=== PATIENT | male | born 1950 | race Caucasian/White ===

== ENCOUNTER 2017-06-19 16:01 | Inpatient (IN) | payer MEDICARE ==
[2017-06-19 16:01] VITALS: BMI 30.1
--- NOTE | 2017-06-19 17:07 | ED PDOC ---
HPI: SOB/CHF/COPD Time Seen by Provider: 06/19/17 16:19 Chief Complaint (Nursing): Chest Pain Chief Complaint (Provider): Shortness of breath History Per: Patient History/Exam Limitations: no limitations Onset/Duration Of Symptoms: Hrs (x1) Current Symptoms Are (Timing): Still Present Current Respiratory Medications: Albuterol Associated Symptoms: denies: Fever, Chills, Chest Pain, Ankle/Leg Swelling, Dizziness Additional Complaint(s): Melissa Montoya is a 66 year old male, with a past medical history of HTN, diabetes and asthma, who presents to the emergency department complaining of shortness of breath associated with cough onset 1 hour ago. Patient reports he has a hard time taking deep breaths, and has been waking up every morning with some cough after which he takes albuterol. Patient states he did wake up with dizziness but has been resolved, and last time he took albuterol was this morning. Patient denies any recent travel, fever, chills, leg swelling and chest pain. PMD: Kashmir Clarke Past Medical History Reviewed: Historical Data, Nursing Documentation, Vital Signs Vital Signs: Last Vital Signs Temp 98.2 F 06/19/17 16:08 Pulse 72 06/19/17 18:31 Resp 16 06/19/17 16:24 BP 167/80 H 06/19/17 16:24 Pulse Ox 99 06/19/17 18:31 - Medical History PMH: Arthritis (knees), Asthma, Diabetes, HTN Denies: Chronic Kidney Disease - Family History Family History: States: Unknown Family Hx - Home Medications Home Medications: Ambulatory Orders Medication Instructions Recorded Atorvastatin Calcium 40 mg PO DAILY 01/17/17 Enalapril Maleate [Vasotec] 20 mg PO DAILY 01/17/17 Insulin Glargine, Recombina 30 unit SQ HS 01/17/17 [Lantus] MetFORMIN [glucOPHAGE] 1,000 mg PO DAILY 01/17/17 Omeprazole 40 mg PO DAILY 01/17/17 Brimonidine Tartrate/Timolol 1 drop OU BID 06/19/17 [Combigan 0.2%-0.5% Eye Drops] acetaZOLAMIDE [Diamox 250 mg Tab] 250 mg PO HS 06/19/17 - Allergies Allergies/Adverse Reactions: Allergies Allergy/AdvReac Type Severity Reaction Status Date / Time shrimp Allergy RASH Verified 11/28/15 00:34 Curb-65 Severity Score - CURB-65 Severity Score Confusion: No Bun >19mg/dl (>7mmol/L): No Respiratory Rate greater than/equal to 30: No Systolic BP <90 or Diastolic BP less than/equal 60mmHg: No Age >64: No Curb-65 Score: 0 Percentage 30-day mortality: 0.6% Review of Systems ROS Statement: Except As Marked, All Systems Reviewed And Found Negative Constitutional: Negative for: Fever, Chills Cardiovascular: Negative for: Chest Pain Respiratory: Positive for: Cough, Shortness of Breath Neurological: Negative for: Dizziness Physical Exam - Reviewed Nursing Documentation Reviewed: Yes Vital Signs Reviewed: Yes - Physical Exam Appears: Positive for: Non-toxic (comfortable) Head Exam: Positive for: ATRAUMATIC, NORMAL INSPECTION, NORMOCEPHALIC Skin: Positive for: Normal Color, Warm, Dry Eye Exam: Positive for: EOMI, Normal appearance, PERRL ENT: Positive for: Normal ENT Inspection Neck: Positive for: Normal, Painless ROM, Supple Cardiovascular/Chest: Positive for: Regular Rate, Rhythm. Negative for: Murmur Respiratory: Positive for: Normal Breath Sounds. Negative for: Respiratory Distress Gastrointestinal/Abdominal: Positive for: Normal Exam, Bowel Sounds, Soft. Negative for: Tenderness Extremity: Positive for: Normal ROM. Negative for: Pedal Edema, Deformity, Swelling Neurologic/Psych: Positive for: Alert, Oriented (x3). Negative for: Motor/ Sensory Deficits - Laboratory Results Result Diagrams: 06/19/17 16:45 06/19/17 17:08 - ECG ECG Rhythm: Positive for: Normal QRS, Normal ST Segment, Sinus Rhythm (NORMAL) Rate: 72 O2 Sat by Pulse Oximetry: 99 (RA) Pulse Ox Interpretation: Normal - Radiology X-Ray: Viewed By Me, Read By Radiologist X-Ray Interpretation: No Acute Disease Medical Decision Making Medical Decision Making: Initial Impression: Dyspnea and hyperglycemia. differential includes: ACS, PE, CHF, rule out asthma exacerbation. Initial Plan: --EKG --B-type Natriuretic peptide --Basic Metabolic Panel --Troponin I --CBC w/ differential --D Dimer --Chest two views (PA/LAT) [RAD] --reevaluation Admitted Patient: Re-evaluation. Discussed results and plan to admit with patient who expresses understanding. All questions answered and there is agreement with the plan. Scribe Attestation: Documented by Martín Ruffin, acting as a scribe for Chika Martínez MD Provider Scribe Attestation: All medical record entries made by the Scribe were at my direction and personally dictated by me. I have reviewed the chart and agree that the record accurately reflects my personal performance of the history, physical exam, medical decision making, and the department course for this patient. I have also personally directed, reviewed, and agree with the discharge instructions and disposition. Disposition - Clinical Impression Clinical Impression: Chest pain, Dyspnea, Hyperglycemia - Patient ED Disposition Is Patient to be Admitted: Yes Discussed With : Shereen Quiñones Doctor Will See Patient In The: ED Counseled Patient/Family Regarding: Studies Performed, Diagnosis - Disposition Disposition Time: 18:00 Condition: GOOD - Pt Status Changed To: Hospital Disposition Of: Observation - POA Present On Arrival: Poor Glycemic Control ARIELLE Risk Score for UA/NSTEMI - ARIELLE Risk Score Age > 64: YES 3 or more CAD Risk Factors: YES Known CAD (Stenosis greater than 50%): NO Aspirin use in past 7 days: NO Severe Angina: NO EKG ST changes greater than 0.5mm: NO Positive Cardiac Marker: NO ARIELLE Score: 2 % risk at 14 days of: all cause mortality, new or recurrent OH, or severe recurrent ischemia requiring urgen revascularization: 8%
[2017-06-19 17:24] LABS: BLOOD UREA NITROGEN 14 mg/dl (9-20); CALCIUM 9.1 mg/dL (8.4-10.2); CARBON DIOXIDE 21 mmol/L (22-30); CHLORIDE 102 mmol/L (98-107); GFR AFRICAN-AMERICAN > 60; POTASSIUM 4.5 MMOL/L (3.6-5.0); SODIUM 133 mmol/l (132-148)
[2017-06-19 17:29] LABS: GLUCOSE,RANDOM 408 mg/dL (75-110)
[2017-06-19] MEDS ORDERED: Insulin Regular 100 units/ml IV STA (17:33)
--- NOTE | 2017-06-19 17:46 | RAD ---
HISTORY: COMPARISON: 11/28/2015. TECHNIQUE: Chest PA and lateral FINDINGS: LINES AND TUBES: None. LUNG AND PLEURA: The lungs are well inflated and clear. HEART AND MEDIASTINUM: The heart is not enlarged. The hilar and mediastinal contours are within normal limits. SKELETAL STRUCTURES: The bony structures are within normal limits for the patient's age. VISUALIZED UPPER ABDOMEN: Normal. OTHER FINDINGS: None. IMPRESSION: No active pulmonary disease.
[2017-06-19 17:48] LABS: BASO % 0.5 % (0.0-2.0); EOS % 15.9 % (0.0-4.0); HEMATOCRIT 38.5 % (35.0-51.0); LYMPH # 1.9 K/uL (1.0-4.3); LYMPH % 30.4 % (20.0-40.0); MEAN CELL VOLUME 86.6 fl (80.0-94.0); MEAN CORPUSCULAR HEMOGLOBIN 29.5 pg (27.0-31.0); MEAN PLATELET VOLUME 8.5 fl (7.2-11.7); MONO # 0.4 K/uL (0.0-0.8); MONO % 6.2 % (0.0-10.0); NRBC % 0.2 % (0.0-0.0); WHITE BLOOD COUNT 6.4 K/uL (4.8-10.8)
[2017-06-19] MEDS ORDERED: Sodium Chloride 0.9% 1,000 ML IV STA (17:56)
[2017-06-19] MEDS ORDERED: Insulin Regular 100 units/ml ONE (17:59)
[2017-06-19] MEDS ORDERED: Albuterol-Ipratrop 3 mg / 0.5 (3 ml) UD INH STA (18:08)
[2017-06-19] MEDS ORDERED: Albuterol 0.083% Inhal Sol (2.5 mg/3 mL) UD INH PRN (18:48)
[2017-06-19] MEDS ORDERED: Glucagon Recombinant 1 mg Inj IM PRN (18:52)
[2017-06-19] MEDS ORDERED: Dextrose 50% SYRINGE Inj (50 ml) IV PRN (18:52)
--- NOTE | 2017-06-19 19:16 | CP.PCM.HP ---
<Shereen Quiñones - Last Filed: 06/19/17 19:14> History of Present Illness - History of Present Illness History of Present Illness: 66 y/o male, with a PMHX of HTN, HLD, diabetes and asthma, presented to the ED complaining of shortness of breath associated with cough onset 1 hour prior to arrival. Patient reports he has a hard time taking deep breaths, and has been waking up every morning with some cough after which he takes albuterol which resolves the symptoms. Patient states he did wake up with dizziness but has been resolved, and last time he took albuterol was this morning. Pt seen and examined at ED, pt is symptoms free, states he feels well. Denies any recent travel, fever, chills, leg swelling and chest pain. PMD: Kashmir Clarke Present on Admission - Present on Admission Any Indicators Present on Admission: Yes History of Uncontrolled Diabetes: Yes Review of Systems - Review of Systems All systems: reviewed and no additional remarkable complaints except (per HPI) Past Patient History - Past Medical History & Family History Past Medical History?: Yes - Past Social History Smoking Status: Never Smoked - CARDIAC Hx Hypertension: Yes - PULMONARY Hx Asthma: Yes - NEUROLOGICAL Hx Neurological Disorder: No - HEENT Hx HEENT Problems: Yes Hx Cataracts: Yes Other/Comment: glasses - RENAL Hx Chronic Kidney Disease: No - ENDOCRINE/METABOLIC Hx Endocrine Disorders: Yes Hx Diabetes Mellitus Type 2: Yes - HEMATOLOGICAL/ONCOLOGICAL Hx Blood Disorders: No - INTEGUMENTARY Hx Dermatological Problems: No - MUSCULOSKELETAL/RHEUMATOLOGICAL Hx Arthritis: Yes (knees) - GASTROINTESTINAL Hx Gastrointestinal Disorders: Yes Other/Comment: chronic constipation - GENITOURINARY/GYNECOLOGICAL Hx Genitourinary Disorders: No - PSYCHIATRIC Hx Substance Use: No - SURGICAL HISTORY Other/Comment: RT. KNEE SURGERY - ANESTHESIA Hx Anesthesia: Yes Hx Anesthesia Reactions: No Hx Malignant Hyperthermia: No Meds Allergies/Adverse Reactions: Allergies Allergy/AdvReac Type Severity Reaction Status Date / Time shrimp Allergy RASH Verified 11/28/15 00:34 Physical Exam - Constitutional Appears: Non-toxic, No Acute Distress - Head Exam Head Exam: NORMOCEPHALIC - Eye Exam Eye Exam: Normal appearance, PERRL Pupil Exam: NORMAL ACCOMODATION - ENT Exam ENT Exam: Mucous Membranes Moist - Respiratory Exam Respiratory Exam: Clear to Auscultation Bilateral, NORMAL BREATHING PATTERN. absent: Rales, Rhonchi, Wheezes - Cardiovascular Exam Cardiovascular Exam: REGULAR RHYTHM, +S1, +S2 - GI/Abdominal Exam GI & Abdominal Exam: Normal Bowel Sounds, Soft. absent: Tenderness - Extremities Exam Extremities exam: Negative for: calf tenderness, pedal edema - Neurological Exam Neurological exam: Alert, CN II-XII Intact, Oriented x3 Results - Vital Signs Recent Vital Signs: Last Vital Signs Temp 98.2 F 06/19/17 16:08 Pulse 71 06/19/17 19:00 Resp 16 06/19/17 16:24 BP 167/80 H 06/19/17 16:24 Pulse Ox 99 06/19/17 18:33 - Labs Result Diagrams: 06/19/17 16:45 06/19/17 17:08 Labs: Laboratory Results - last 24 hr 06/19/17 06/19/17 06/19/17 16:45 16:45 17:08 WBC 6.4 RBC 4.45 Hgb 13.1 Hct 38.5 MCV 86.6 MCH 29.5 MCHC 34.0 RDW 13.0 Plt Count 219 MPV 8.5 Neut % (Auto) 47.0 L Lymph % (Auto) 30.4 [place] % (Auto) 6.2 Eos % (Auto) 15.9 H Baso % (Auto) 0.5 Neut # 3.0 Lymph # 1.9 [place] # 0.4 Eos # 1.0 H Baso # 0.0 D-Dimer, Quantitative 133 Sodium 133 Potassium 4.5 Chloride 102 Carbon Dioxide 21 L Anion Gap 15 BUN 14 Creatinine 0.8 Est GFR ( Amer) > 60 Est GFR (Non-Af Amer) > 60 Random Glucose 408 H* D Calcium 9.1 Troponin I < 0.0120 NT-Pro-B Natriuret Pep 96.3 Assessment & Plan - Assessment and Plan (Free Text) Assessment: 66 y/o male with history of HTN, Insulin dependant type II diabetes, HLD and Asthma being admitted for dyspnea responsive to albuterol therapy Plan: Dyspnea Chest xray negative, D-Dimer rule out PE, BNP low (less likely cardiac origin) therefore underlying cause more likely due Moderate intermittent asthma -Albuterol as ordered -resume home medications -Will adjust asthma medication as classification and current medication is not sufficient 2. Insulin Dependent Type II diabetes (Uncontrolled) -Achs -resume home meds -moderate coverage scale -hypoglycemic protocol 3. HTN resume home medication 4. Diet- Diabetic Heart Healthy 5. DVT prohylaxis- Lovenox 40mg daily <Kashmir Clarke - Last Filed: 06/20/17 07:49> Results - Vital Signs Recent Vital Signs: Last Vital Signs Temp 97.6 F 06/20/17 04:45 Pulse 56 L 06/20/17 04:45 Resp 18 06/20/17 04:45 BP 124/70 06/20/17 04:45 Pulse Ox 96 06/20/17 04:45 - Labs Result Diagrams: 06/19/17 16:45 06/19/17 17:08 Labs: Laboratory Results - last 24 hr 06/19/17 06/19/17 06/19/17 16:45 16:45 17:08 WBC 6.4 RBC 4.45 Hgb 13.1 Hct 38.5 MCV 86.6 MCH 29.5 MCHC 34.0 RDW 13.0 Plt Count 219 MPV 8.5 Neut % (Auto) 47.0 L Lymph % (Auto) 30.4 [place] % (Auto) 6.2 Eos % (Auto) 15.9 H Baso % (Auto) 0.5 Neut # 3.0 Lymph # 1.9 [place] # 0.4 Eos # 1.0 H Baso # 0.0 D-Dimer, Quantitative 133 Sodium 133 Potassium 4.5 Chloride 102 Carbon Dioxide 21 L Anion Gap 15 BUN 14 Creatinine 0.8 Est GFR ( Amer) > 60 Est GFR (Non-Af Amer) > 60 POC Glucose (mg/dL) Random Glucose 408 H* D Calcium 9.1 Troponin I < 0.0120 NT-Pro-B Natriuret Pep 96.3 06/19/17 06/19/17 06/20/17 19:29 23:29 01:00 WBC RBC Hgb Hct MCV MCH MCHC RDW Plt Count MPV Neut % (Auto) Lymph % (Auto) [place] % (Auto) Eos % (Auto) Baso % (Auto) Neut # Lymph # [place] # Eos # Baso # D-Dimer, Quantitative Sodium Potassium Chloride Carbon Dioxide Anion Gap BUN Creatinine Est GFR ( Amer) Est GFR (Non-Af Amer) POC Glucose (mg/dL) 284 H 353 H Random Glucose Calcium Troponin I < 0.0120 NT-Pro-B Natriuret Pep 06/20/17 05:13 WBC RBC Hgb Hct MCV MCH MCHC RDW Plt Count MPV Neut % (Auto) Lymph % (Auto) [place] % (Auto) Eos % (Auto) Baso % (Auto) Neut # Lymph # [place] # Eos # Baso # D-Dimer, Quantitative Sodium Potassium Chloride Carbon Dioxide Anion Gap BUN Creatinine Est GFR ( Amer) Est GFR (Non-Af Amer) POC Glucose (mg/dL) 197 H Random Glucose Calcium Troponin I NT-Pro-B Natriuret Pep Attending/Attestation - Attestation I have personally seen and examined this patient.: Yes I have fully participated in the care of the patient.: Yes I have reviewed all pertinent clinical information: Yes
[2017-06-19] MEDS ORDERED: Patient's Own Med (Insulin Glargine, Recombina [Lantus] 30 UNIT) SQ SCH (22:00)
[2017-06-19] MEDS: Insulin Regular 100 units/ml SC SCH (23:31)
[2017-06-19] MEDS: Insulin Detemir 100 Units/ml Inj SC SCH (23:45)
[2017-06-20] MEDS ORDERED: Influenza Vaccine 18yr & older 0.5 ML/45 MCG SYR IM ONE (06:00)
[2017-06-20] MEDS ORDERED: Pneumococcal 23-Valent Vaccine IM ONE (06:00)
[2017-06-20] MEDS: Insulin Regular 100 units/ml SC SCH ×4 (07:52→22:03)
--- NOTE | 2017-06-20 08:39 | CARD ---
APPROVED REPORT EKG Measurement Heart [id number] <Conclusion> Normal sinus rhythm Normal ECG
[2017-06-20] MEDS ORDERED: Albuterol-Ipratrop 3 mg / 0.5 (3 ml) UD INH STA (08:53)
[2017-06-20] MEDS ORDERED: Patient's Own Med (Brimonidine Tartrate/Timolol [Combigan 0.2%-0.5% Eye Drops] 1 DROP) OU SCH (09:00)
[2017-06-20] MEDS: Pantoprazole 40 mg EC Tab PO SCH (09:53)
[2017-06-20] MEDS: Mometasone 110 mcg/puff-30 puff Inh INH SCH ×2 (09:54→22:02)
[2017-06-20] MEDS: Brimonidine 0.2% 50 DROP/5 ML BOTTLE OU SCH ×3 (09:54→16:52)
[2017-06-20] MEDS: Enoxaparin 40 mg Syringe SC SCH (09:55)
--- NOTE | 2017-06-20 11:57 | CP.PCM.CON ---
History of Present Illness - History of Present Illness History of Present Illness: THE PATIENT IS A 66 YEAR OLD MALE WHO HAS A HISTORY OF ASTHMA, HYPERTENSION AND HYPERLIPIDEMIA WHO COMPLAINED ABOUT SOB AND COUGHING YESTERDAY AND CAME TO ER AND WAS ADMITTED. HE RECEIVED NEBULIZER TREATMENTS AND NOW FEELS BETTER THIS MORNING AND IS BREATHING BETTER. CARDIOLOGY WAS CALLED TO SEE THE PATIENT. HE DENIES CHEST PAIN OR A HISTORY OF CARDIAC DISEASE. Past Patient History - Past Medical History & Family History Past Medical History?: Yes - Past Social History Smoking Status: Never Smoked - CARDIAC Hx Cardiac Disorders: Yes (HTN) Hx Hypercholesterolemia: Yes Hx Hypertension: Yes - PULMONARY Hx Respiratory Disorders: Yes (asthma) Hx Asthma: Yes - NEUROLOGICAL Hx Neurological Disorder: No - HEENT Hx HEENT Problems: Yes Hx Cataracts: Yes - RENAL Hx Chronic Kidney Disease: No - ENDOCRINE/METABOLIC Hx Endocrine Disorders: Yes (diabetes) Hx Diabetes Mellitus Type 2: Yes - HEMATOLOGICAL/ONCOLOGICAL Hx Blood Disorders: No Hx AIDS: No Hx Human Immunodeficiency Virus (HIV): No - INTEGUMENTARY Hx Dermatological Problems: No - MUSCULOSKELETAL/RHEUMATOLOGICAL Hx Musculoskeletal Disorders: Yes (arthritis) Hx Arthritis: Yes Hx Falls: No - GASTROINTESTINAL Hx Gastrointestinal Disorders: Yes Other/Comment: chronic constipation - GENITOURINARY/GYNECOLOGICAL Hx Genitourinary Disorders: No - PSYCHIATRIC Hx Psychophysiologic Disorder: Yes Hx Anxiety: Yes Hx Depression: Yes Hx Substance Use: No - SURGICAL HISTORY Other/Comment: RT. KNEE SURGERY - ANESTHESIA Hx Anesthesia: Yes Hx Anesthesia Reactions: No Hx Malignant Hyperthermia: No Has any member of the family had a problem w/ anesthesia?: No Meds Allergies/Adverse Reactions: Allergies Allergy/AdvReac Type Severity Reaction Status Date / Time shrimp Allergy RASH Verified 11/28/15 00:34 - Medications Medications: Current Medications Acetazolamide (Diamox 250 Mg Tab) 250 mg PO HS [facility] Last Admin: 06/19/17 23:23 Dose: 250 mg Albuterol Sulfate (Albuterol 0.083% Inhal Melissa (2.5 Mg/3 Ml) Ud) 2.5 mg INH RQ6 PRN PRN Reason: Shortness of Breath Albuterol/Ipratropium (Duoneb 3 Mg/0.5 Mg (3 Ml) Ud) 3 ml INH RQ8 VIKI Atorvastatin Calcium (Lipitor) 40 mg PO DAILY [facility] Last Admin: 06/20/17 09:55 Dose: 40 mg Brimonidine Tartrate (Alphagan 0.2% Opht) 1 drop OU TID [facility] Last Admin: 06/20/17 09:54 Dose: 1 drop Dextrose (Dextrose 50% Inj) 0 ml IV STAT PRN; Protocol PRN Reason: Hyglycemia Protocol Dextrose (Glutose 15) 0 gm PO ONCE PRN; Protocol PRN Reason: Hypoglycemia Protocol Enalapril Maleate (Vasotec) 20 mg PO DAILY [facility] Last Admin: 06/20/17 09:55 Dose: 20 mg Enoxaparin Sodium (Lovenox) 40 mg SC DAILY [facility] PRN Reason: Protocol Last Admin: 06/20/17 09:55 Dose: 40 mg Glucagon (Glucagen Diagnostic Kit) 0 mg IM STAT PRN; Protocol PRN Reason: Hypoglycemia Protocol Insulin Detemir (Levemir) 30 units SC HS [facility] Last Admin: 06/19/17 23:45 Dose: 30 units Insulin Human Regular (Humulin R) 0 units SC [facility] PRN Reason: Protocol Last Admin: 06/20/17 07:52 Dose: 2 units Metformin HCl (Glucophage) 1,000 mg PO BID [facility] Last Admin: 06/20/17 09:53 Dose: 1,000 mg Mometasone Furoate (Asmanex Twisthaler 110 Mcg) 1 puff INH RBID [facility] Last Admin: 06/20/17 09:54 Dose: 1 puff Pantoprazole Sodium (Protonix Ec Tab) 40 mg PO DAILY [facility] Last Admin: 06/20/17 09:53 Dose: 40 mg Timolol Maleate (Timoptic 0.5% Ophth Soln) 1 drop OU BID [facility] Last Admin: 06/20/17 10:05 Dose: 1 drop Physical Exam - Respiratory Exam Respiratory Exam: Clear to Auscultation Bilateral - Cardiovascular Exam Cardiovascular Exam: REGULAR RHYTHM, +S1, +S2 - Extremities Exam Extremities exam: Positive for: normal inspection - Additional Findings Additional findings: EKG NSR TROPONINS NORMAL X 3 PBNP NORMAL CXR CLEAR LUNG BELLE Results - Vital Signs Recent Vital Signs: Last Vital Signs Temp 97.6 F 06/20/17 08:00 Pulse 59 L 06/20/17 08:00 Resp 18 06/20/17 08:00 BP 133/75 06/20/17 08:00 Pulse Ox 98 06/20/17 08:00 - Labs Result Diagrams: 06/19/17 16:45 06/19/17 17:08 Labs: Laboratory Results - last 24 hr 06/19/17 06/19/17 06/19/17 16:45 16:45 17:08 WBC 6.4 RBC 4.45 Hgb 13.1 Hct 38.5 MCV 86.6 MCH 29.5 MCHC 34.0 RDW 13.0 Plt Count 219 MPV 8.5 Neut % (Auto) 47.0 L Lymph % (Auto) 30.4 [place] % (Auto) 6.2 Eos % (Auto) 15.9 H Baso % (Auto) 0.5 Neut # 3.0 Lymph # 1.9 [place] # 0.4 Eos # 1.0 H Baso # 0.0 D-Dimer, Quantitative 133 Sodium 133 Potassium 4.5 Chloride 102 Carbon Dioxide 21 L Anion Gap 15 BUN 14 Creatinine 0.8 Est GFR ( Amer) > 60 Est GFR (Non-Af Amer) > 60 POC Glucose (mg/dL) Random Glucose 408 H* D Calcium 9.1 Troponin I < 0.0120 NT-Pro-B Natriuret Pep 96.3 06/19/17 06/19/17 06/20/17 19:29 23:29 01:00 WBC RBC Hgb Hct MCV MCH MCHC RDW Plt Count MPV Neut % (Auto) Lymph % (Auto) [place] % (Auto) Eos % (Auto) Baso % (Auto) Neut # Lymph # [place] # Eos # Baso # D-Dimer, Quantitative Sodium Potassium Chloride Carbon Dioxide Anion Gap BUN Creatinine Est GFR ( Amer) Est GFR (Non-Af Amer) POC Glucose (mg/dL) 284 H 353 H Random Glucose Calcium Troponin I < 0.0120 NT-Pro-B Natriuret Pep 06/20/17 06/20/17 06/20/17 05:13 08:38 10:48 WBC RBC Hgb Hct MCV MCH MCHC RDW Plt Count MPV Neut % (Auto) Lymph % (Auto) [place] % (Auto) Eos % (Auto) Baso % (Auto) Neut # Lymph # [place] # Eos # Baso # D-Dimer, Quantitative Sodium Potassium Chloride Carbon Dioxide Anion Gap BUN Creatinine Est GFR ( Amer) Est GFR (Non-Af Amer) POC Glucose (mg/dL) 197 H 260 H Random Glucose Calcium Troponin I < 0.0120 NT-Pro-B Natriuret Pep Assessment & Plan - Assessment and Plan (Free Text) Assessment: ASTHMA STABLE CARDIAC STATUS HYPERTENSION HYPERLIPIDEMIA Plan: CONTINUE O2, BRONCHODILATORS, ENALAPRIL, ATORVASTATIN, GLUCOPHAGE, INSULIN, LOVENOX OK TO DISCHARGE PATIENT FROM CARDIAC [facility] FU WITH DR ESCUDERO
--- NOTE | 2017-06-20 11:59 | CP.PCM.PN ---
<Rosalva Bahena - Last Filed: 06/20/17 15:44> Subjective - Date & Time of Evaluation Date of Evaluation: 06/20/17 Time of Evaluation: 07:05 - Subjective Subjective: Patient was seen and examined with attending in telemetry unit this morning. Still c/o chest tightness sensation in the middle of the chest, and SOB. Denies chills, cough, abdominal pain, or other complains. afebrile, stable BP wnl had an uneventful night Objective - Vital Signs/Intake and Output Vital Signs (last 24 hours): Temp Pulse Resp BP Pulse Ox 97.6 F 59 L 18 133/75 98 06/20/17 08:00 06/20/17 08:00 06/20/17 08:00 06/20/17 08:00 06/20/17 08:00 - Medications Medications: Current Medications Acetazolamide (Diamox 250 Mg Tab) 250 mg PO [facility] Last Admin: 06/19/17 23:23 Dose: 250 mg Albuterol Sulfate (Albuterol 0.083% Inhal Melissa (2.5 Mg/3 Ml) Ud) 2.5 mg INH RQ6 PRN PRN Reason: Shortness of Breath Albuterol/Ipratropium (Duoneb 3 Mg/0.5 Mg (3 Ml) Ud) 3 ml INH RQ8 VIKI Atorvastatin Calcium (Lipitor) 40 mg PO DAILY [facility] Last Admin: 06/20/17 09:55 Dose: 40 mg Brimonidine Tartrate (Alphagan 0.2% Opht) 1 drop OU TID [facility] Last Admin: 06/20/17 09:54 Dose: 1 drop Dextrose (Dextrose 50% Inj) 0 ml IV STAT PRN; Protocol PRN Reason: Hyglycemia Protocol Dextrose (Glutose 15) 0 gm PO ONCE PRN; Protocol PRN Reason: Hypoglycemia Protocol Enalapril Maleate (Vasotec) 20 mg PO DAILY [facility] Last Admin: 06/20/17 09:55 Dose: 20 mg Enoxaparin Sodium (Lovenox) 40 mg SC DAILY [facility] PRN Reason: Protocol Last Admin: 06/20/17 09:55 Dose: 40 mg Glucagon (Glucagen Diagnostic Kit) 0 mg IM STAT PRN; Protocol PRN Reason: Hypoglycemia Protocol Insulin Detemir (Levemir) 30 units SC [facility] Last Admin: 06/19/17 23:45 Dose: 30 units Insulin Human Regular (Humulin R) 0 units SC [facility] PRN Reason: Protocol Last Admin: 06/20/17 07:52 Dose: 2 units Metformin HCl (Glucophage) 1,000 mg PO BID [facility] Last Admin: 06/20/17 09:53 Dose: 1,000 mg Mometasone Furoate (Asmanex Twisthaler 110 Mcg) 1 puff INH RBID [facility] Last Admin: 06/20/17 09:54 Dose: 1 puff Pantoprazole Sodium (Protonix Ec Tab) 40 mg PO DAILY [facility] Last Admin: 06/20/17 09:53 Dose: 40 mg Timolol Maleate (Timoptic 0.5% Oph Soln) 1 drop OU BID [facility] Last Admin: 06/20/17 10:05 Dose: 1 drop - Labs Labs: 06/19/17 16:45 06/19/17 17:08 - Constitutional Appears: No Acute Distress - ENT Exam ENT Exam: Mucous Membranes Moist - Respiratory Exam Respiratory Exam: Wheezes, NORMAL BREATHING PATTERN. absent: Rales, Rhonchi, Respiratory Distress - Cardiovascular Exam Cardiovascular Exam: REGULAR RHYTHM, +S1, +S2 - GI/Abdominal Exam GI & Abdominal Exam: Soft, Normal Bowel Sounds. absent: Distended, Guarding, Rigid, Tenderness Assessment and Plan - Assessment and Plan (Free Text) Assessment: 66 y/o male with history of HTN, Insulin dependant type II diabetes, HLD and Asthma being admitted for dyspnea and chest tightness. Plan: Short of Breath afebrile, no leokocytosis patient wheezing at time of evaluation associated with chest tightness, most likely 2/2 uncontrolled asthma vs viral infection/asthma exacerbation -Duoneb inh once stat -Duoneb inh Q8 [facility] -start inhale steroids: Mometasone 1 puff inh BID -f/u respiratory status Troponin x 3 negative EKG showed NSR, no acute ST-T wave changes Pro-BNP wnl Cardiology consult appreciated, to r/o possible cardiac etiology of patient's symptoms Chest xray negative, D-Dimer rule out PE, BNP low (less likely cardiac origin) therefore underlying cause more likely due Moderate intermittent asthma Insulin Dependent Type II Diabetes Mellitus (Uncontrolled) -[facility] hgbA1C 12.2 %on 05/07/17 -increase Metformin frequency from daily to BID. Metformin 1000 mg BID -BUN/Cr wnl, GFR>60 -c/w home levemir 30 units SC HS -c/w regular insulin by protocol, Medium dose -c/w hypoglycemic protocol Diabetic Heart Healthy HTN Enalapril 20 mg PO daily DVT prohylaxis Lovenox 40mg daily <Hema Mcneal - Last Filed: 06/23/17 07:14> Objective - Vital Signs/Intake and Output Vital Signs (last 24 hours): Temp Pulse Resp BP Pulse Ox 98.4 F 64 18 116/56 L 94 L 06/21/17 13:13 06/21/17 13:13 06/21/17 13:13 06/21/17 13:13 06/21/17 13:13 - Labs Labs: 06/19/17 16:45 06/21/17 05:30 Attending/Attestation - Attestation I have personally seen and examined this patient.: Yes I have fully participated in the care of the patient.: Yes I have reviewed all pertinent clinical information, including history, physical exam and plan: Yes
[2017-06-20] MEDS: Albuterol-Ipratrop 3 mg / 0.5 (3 ml) UD INH SCH ×2 (15:29→23:48)
[2017-06-20] MEDS ORDERED: Mometasone 110 mcg/puff-30 puff Inh INH SCH (20:00)
[2017-06-20] MEDS: Insulin Detemir 100 Units/ml Inj SC SCH (22:02)
[2017-06-21] MEDS: Insulin Regular 100 units/ml SC SCH (06:41)
[2017-06-21] MEDS: Albuterol-Ipratrop 3 mg / 0.5 (3 ml) UD INH SCH (07:29)
[2017-06-21 07:54] LABS: BLOOD UREA NITROGEN 13 mg/dl (9-20); CALCIUM 8.7 mg/dL (8.4-10.2); CARBON DIOXIDE 23 mmol/L (22-30); CHLORIDE 106 mmol/L (98-107); GFR AFRICAN-AMERICAN > 60; GLUCOSE,RANDOM 148 mg/dL (75-110); POTASSIUM 3.8 MMOL/L (3.6-5.0); SODIUM 140 mmol/l (132-148)
[2017-06-21] MEDS: Mometasone 110 mcg/puff-30 puff Inh INH SCH (08:51)
[2017-06-21] MEDS: Brimonidine 0.2% 50 DROP/5 ML BOTTLE OU SCH (08:52)
[2017-06-21] MEDS: Pantoprazole 40 mg EC Tab PO SCH (08:53)
[2017-06-21] MEDS: Enoxaparin 40 mg Syringe SC SCH (08:53)
--- NOTE | 2017-06-21 11:51 | CP.PCM.DIS ---
Provider - Provider Date of Admission: 06/20/17 17:38 Attending physician: Hema Mcneal MD Consults: Cardiology Time Spent in preparation of Discharge (in minutes): 30 Diagnosis - Discharge Diagnosis (1) Asthma exacerbation Status: Acute Comment: improved. F/u with PMD. ER precautions given (2) Diabetes mellitus type 2 in nonobese Status: Chronic (3) Hypertension Status: Chronic Hospital Course - Lab Results Lab Results: Most Recent Lab Values WBC 6.4 K/uL (4.8-10.8) 06/19/17 16:45 RBC 4.45 Mil/uL (4.40-5.90) 06/19/17 16:45 Hgb 13.1 g/dL (12.0-18.0) 06/19/17 16:45 Hct 38.5 % (35.0-51.0) 06/19/17 16:45 MCV 86.6 fl (80.0-94.0) 06/19/17 16:45 MCH 29.5 pg (27.0-31.0) 06/19/17 16:45 MCHC 34.0 g/dL (33.0-37.0) 06/19/17 16:45 RDW 13.0 % (11.5-14.5) 06/19/17 16:45 Plt Count 219 K/uL (130-400) 06/19/17 16:45 MPV 8.5 fl (7.2-11.7) 06/19/17 16:45 Neut % (Auto) 47.0 % (50.0-75.0) L 06/19/17 16:45 Lymph % (Auto) 30.4 % (20.0-40.0) 06/19/17 16:45 [place] % (Auto) 6.2 % (0.0-10.0) 06/19/17 16:45 Eos % (Auto) 15.9 % (0.0-4.0) H 06/19/17 16:45 Baso % (Auto) 0.5 % (0.0-2.0) 06/19/17 16:45 Neut # 3.0 K/uL (1.8-7.0) 06/19/17 16:45 Lymph # 1.9 K/uL (1.0-4.3) 06/19/17 16:45 [place] # 0.4 K/uL (0.0-0.8) 06/19/17 16:45 Eos # 1.0 K/uL (0.0-0.7) H 06/19/17 16:45 Baso # 0.0 K/uL (0.0-0.2) 06/19/17 16:45 D-Dimer, Quantitative 133 ng/mlDDU (0-230) 06/19/17 16:45 Sodium 140 mmol/l (132-148) 06/21/17 05:30 Potassium 3.8 MMOL/L (3.6-5.0) 06/21/17 05:30 Chloride 106 mmol/L (98-107) 06/21/17 05:30 Carbon Dioxide 23 mmol/L (22-30) 06/21/17 05:30 Anion Gap 15 (10-20) 06/21/17 05:30 BUN 13 mg/dl (9-20) 06/21/17 05:30 Creatinine 0.9 mg/dL (0.8-1.5) 06/21/17 05:30 Est GFR ( Amer) > 60 06/21/17 05:30 Est GFR (Non-Af Amer) > 60 06/21/17 05:30 POC Glucose (mg/dL) 168 mg/dL (65-110) H 06/21/17 11:16 Random Glucose 148 mg/dL (75-110) H 06/21/17 05:30 Calcium 8.7 mg/dL (8.4-10.2) 06/21/17 05:30 Troponin I < 0.0120 ng/mL (0.00-0.120) 06/20/17 08:38 NT-Pro-B Natriuret Pep 96.3 pg/ml (0-900) 06/19/17 17:08 - Hospital Course Hospital Course: 66 y/o male with history of HTN, Insulin dependant type II diabetes, HLD and Asthma being admitted for asthma exacerbation. During admission patient was managed with bronchodilators scheduled, we started inhale steroids. Patient's respiratory status improved. We consulted Cardiology to r/o cardiac etiology of chest pain at ED presentation, troponin neg x 3, and stable as per Cardiology no cardiac etiology was found to explain his symptoms and cleared pt from Cardiology stand point for discharged. Hyperglycemia was noted, and we increased frequency of Metformin from once daily to BID. Patient is stable to be discharge today and will f/u with PMD, in 1 week. ER precautions given. Flovent HFA 110 BID Metformin 1000 mg BID - Date & Time of H&P Date of H&P: 06/19/17 Time of H&P: 19:15 Discharge Exam - Head Exam Head Exam: NORMOCEPHALIC - Eye Exam Eye Exam: Normal appearance - ENT Exam ENT Exam: Mucous Membranes Moist - Respiratory Exam Respiratory Exam: Clear to PA & Lateral, NORMAL BREATHING PATTERN. absent: Rales, Rhonchi, Wheezes, Respiratory Distress, Stridor - Cardiovascular Exam Cardiovascular Exam: REGULAR RHYTHM, +S1, +S2 - GI/Abdominal Exam GI & Abdominal Exam: Normal Bowel Sounds, Soft. absent: Distended, Guarding, Tenderness - Extremities Exam Extremities exam: normal inspection Additional comments: no calves tenderness, no edema in LE - Neurological Exam Neurological exam: Alert, Oriented x3 - Skin Skin Exam: Dry, Intact, Normal Color Discharge Plan - Discharge Medications Prescriptions: Albuterol 0.083% [Albuterol 0.083% Inhal Melissa (2.5 mg/3 ml) UD] 2.5 mg INH RQ6 PRN #1 PRN Reason: Shortness Of Breath Fluticasone Propionate [Flovent Hfa] 0.11 mg IH BID #1 - Follow Up Plan Condition: GOOD Disposition: HOME/ ROUTINE Patient education suggested?: Yes Referrals: Hema Mcneal MD [Family Provider] - Zander Nix MD [Staff Provider] -
[2017-06-21 13:13] VITALS: BP 116/56; PULSE 64; RESP 18; TEMP 98.4; O2SAT 94
== END 2017-06-21 15:00 | disposition home or self-care (01) | DRG 203 ==
LOC: H.ER 16:01 → H.ERHOLD 18:11 → H.TEL 22:19 → OBSVTOIN 06-20 17:38
PROVIDERS: ADMIT Family Medicine; ATTEND Family Medicine
PROC: 3E0234Z Introduction of Serum, Toxoid and Vaccine into Muscle, Percutaneous Approach (ICD-10-PCS; principal; 2017-06-20)
PROC: 3E0F7GC Introduction of Other Therapeutic Substance into Respiratory Tract, Via Natural or Artificial Opening (ICD-10-PCS; 2017-06-20)
DX: J45.21 Mild intermittent asthma with (acute) exacerbation (principal); E11.65 Type 2 diabetes mellitus with hyperglycemia; J44.9 Chronic obstructive pulmonary disease, unspecified; I10 Essential (primary) hypertension; E78.00 Pure hypercholesterolemia, unspecified; E78.5 Hyperlipidemia, unspecified; K59.09 Other constipation; M17.0 Bilateral primary osteoarthritis of knee; Z79.4 Long term (current) use of insulin; Z79.84 Long term (current) use of oral hypoglycemic drugs; Z79.899 Other long term (current) drug therapy; F32.9 Major depressive disorder, single episode, unspecified; F41.9 Anxiety disorder, unspecified; H26.9 Unspecified cataract; M19.90 Unspecified osteoarthritis, unspecified site; Z23 Encounter for immunization

== ENCOUNTER 2017-08-23 23:12 | Observation (INO) | payer MEDICARE ==
[2017-08-23 23:13] VITALS: BMI 30.1
[2017-08-23] MEDS ORDERED: Sodium Chloride 0.9% 500 ML IV STA (23:46)
--- NOTE | 2017-08-23 23:49 | ED PDOC ---
HPI: Chest Pain Time Seen by Provider: 08/23/17 23:39 Chief Complaint (Nursing): Chest Pain Chief Complaint (Provider): Chest Pain History Per: Patient, Family (son) History/Exam Limitations: no limitations Onset/Duration Of Symptoms: Days (x1) Current Symptoms Are (Timing): Gone Now Additional Complaint(s): Melissa Montoya is a 67-year-old male with a past medical history of diabetes, hypertension, and hypercholesterolemia, who presents complaining of intermittent chest pain for 1 day. Per son, the patient has been complaining of a burning pain which is relieved after passing gas. Denies any nausea, vomiting , diarrhea, abdominal pain, leg pain, headache, dizziness, or weakness. Patient is currently asymptomatic. PMD: Dr. Clarke Past Medical History Reviewed: Historical Data, Nursing Documentation, Vital Signs Vital Signs: Last Vital Signs Temp 98.4 F 08/23/17 23:37 Pulse 72 08/23/17 23:37 Resp 18 08/23/17 23:37 BP 163/98 H 08/23/17 23:37 Pulse Ox 98 08/23/17 23:54 - Medical History PMH: Anxiety, Arthritis, Asthma, Depression, Diabetes, HTN, Hypercholesterolemia Denies: HIV, Chronic Kidney Disease - Surgical History Other surgeries: Right knee surgery - Family History Family History: States: Unknown Family Hx - Social History Ex-Smoker (has not smoked in the last 12 months): Yes Alcohol: None Drugs: Denies - Home Medications Home Medications: Ambulatory Orders Medication Instructions Recorded Atorvastatin Calcium 40 mg PO DAILY 01/17/17 Enalapril Maleate [Vasotec] 20 mg PO DAILY 01/17/17 Insulin Glargine, Recombina 30 unit SQ HS 01/17/17 [Lantus] Omeprazole 40 mg PO DAILY 01/17/17 Brimonidine Tartrate/Timolol 1 drop OU BID 06/19/17 [Combigan 0.2%-0.5% Eye Drops] acetaZOLAMIDE [Diamox 250 mg Tab] 250 mg PO HS 06/19/17 Albuterol 0.083% [Albuterol 0.083% 2.5 mg INH RQ6 PRN #1 06/21/17 Inhal Melissa (2.5 mg/3 ml) UD] Fluticasone Propionate [Flovent 0.11 mg IH BID #1 06/21/17 Hfa] MetFORMIN [glucoPHAGE] 1,000 mg PO BID #60 06/21/17 - Allergies Allergies/Adverse Reactions: Allergies Allergy/AdvReac Type Severity Reaction Status Date / Time shrimp Allergy RASH Verified 11/28/15 00:34 Review of Systems ROS Statement: Except As Marked, All Systems Reviewed And Found Negative Constitutional: Negative for: Fever Cardiovascular: Positive for: Chest Pain Respiratory: Negative for: Shortness of Breath Gastrointestinal: Positive for: Other (passing gas). Negative for: Nausea, Vomiting, Abdominal Pain, Diarrhea Musculoskeletal: Negative for: Leg Pain Neurological: Negative for: Weakness, Headache, Dizziness Physical Exam - Reviewed Nursing Documentation Reviewed: Yes Vital Signs Reviewed: Yes - Physical Exam Appears: Positive for: Non-toxic, No Acute Distress Head Exam: Positive for: ATRAUMATIC, NORMOCEPHALIC Skin: Positive for: Normal Color, Warm, Dry Eye Exam: Positive for: EOMI, Normal appearance, PERRL Neck: Positive for: Normal, Painless ROM Cardiovascular/Chest: Positive for: Regular Rate, Rhythm, Chest Non Tender. Negative for: Murmur Respiratory: Positive for: Normal Breath Sounds. Negative for: Accessory Muscle Use, Respiratory Distress Gastrointestinal/Abdominal: Positive for: Normal Exam, Soft. Negative for: Tenderness Back: Positive for: Normal Inspection. Negative for: L CVA Tenderness, R CVA Tenderness, Vertebral Tenderness Extremity: Positive for: Normal ROM, Capillary Refill (< 2 sec). Negative for: Pedal Edema, Calf Tenderness, Deformity Neurologic/Psych: Positive for: Alert, Oriented (x3). Negative for: Motor/ Sensory Deficits - ECG O2 Sat by Pulse Oximetry: 98 (RA) Pulse Ox Interpretation: Normal - Progress ED Course And Treament: 1202: Stable. Dr. Palomino to fu on labs and imaging. Dispo accordingly. Medical Decision Making Medical Decision Making: Time: 23:45 Initial Impression: Chest pain Initial Plan: --EKG --CMP --Troponin I --CBC w/ differential --Chest x-ray --Aspirin 325 mg PO --NS IV 500 ml at 100 mls/hr --Pending reevaluation Time: 00:00 Patient is signed out to Dr. Van Palomino at this time. Pending ER work up and reevaluation. Scribe Attestation: Documented by Nickie Salinas, acting as a scribe for Slick Terry MD Provider Scribe Attestation: All medical record entries made by the Scribe were at my direction and personally dictated by me. I have reviewed the chart and agree that the record accurately reflects my personal performance of the history, physical exam, medical decision making, and the department course for this patient. I have also personally directed, reviewed, and agree with the discharge instructions and disposition. Disposition - Clinical Impression Clinical Impression: Acute chest pain - Disposition Disposition: Transfer of Care Disposition Time: 00:00 Condition: STABLE Patient Signed Over To: Van Palomino Handoff Comments: Pending work up and reevaluation
--- NOTE | 2017-08-24 00:19 | ED PDOC ---
- Laboratory Results Result Diagrams: 08/24/17 00:22 08/24/17 00:22 - ECG O2 Sat by Pulse Oximetry: 98 (RA) Pulse Ox Interpretation: Normal Medical Decision Making Medical Decision Making: Time: 00:00 Patient is signed out to me by Dr. Slick Terry, pending labs, chest x-ray, and reevaluation. Time: 01:18 Labs reviewed, and reveal blood sugar is elevated. Ordered IV fluids. Troponin is negative. Chest x-ray shows no acute disease. Patient will be hospitalized for chest pain observation. Patient is referred to admitting resident, who is covering for Dr. Mcneal Scribe Attestation: Documented by Nickie Salinas, acting as a scribe for Van Palomino MD Provider Scribe Attestation: All medical record entries made by the Scribe were at my direction and personally dictated by me. I have reviewed the chart and agree that the record accurately reflects my personal performance of the history, physical exam, medical decision making, and the department course for this patient. I have also personally directed, reviewed, and agree with the discharge instructions and disposition. Disposition Counseled Patient/Family Regarding: Studies Performed - Clinical Impression Clinical Impression: Acute chest pain - POA Present On Arrival: Poor Glycemic Control - Disposition Disposition: Hospitalized as Observation Patient Disposition Time: 01:18 Condition: FAIR
[2017-08-24 00:48] LABS: BASO % 0.4 % (0.0-2.0); EOS # 0.3 K/uL (0.0-0.7); EOS % 5.2 % (0.0-4.0); HEMATOCRIT 38.5 % (35.0-51.0); LYMPH # 1.9 K/uL (1.0-4.3); LYMPH % 33.1 % (20.0-40.0); MEAN CELL VOLUME 87.5 fl (80.0-94.0); MEAN CORPUSCULAR HGB CONC 33.2 g/dL (33.0-37.0); MEAN PLATELET VOLUME 8.9 fl (7.2-11.7); MONO # 0.4 K/uL (0.0-0.8); MONO % 7.4 % (0.0-10.0); NEUT # 3.1 K/uL (1.8-7.0); NEUT % 53.9 % (50.0-75.0); NRBC % 0.1 % (0.0-0.0); RED CELL DISTRIBUTION WIDTH 12.9 % (11.5-14.5); WHITE BLOOD COUNT 5.7 K/uL (4.8-10.8)
[2017-08-24 01:18] LABS: ALB/GLOB RATIO 1.4 (1.0-2.1); ALKALINE PHOSPHATASE 96 U/L (38-126); ALT/SGPT 40 U/L (21-72); AST/SGOT 15 U/L (17-59); BILIRUBIN,TOTAL 0.6 mg/dl (0.2-1.3); BLOOD UREA NITROGEN 19 mg/dl (9-20); CARBON DIOXIDE 26 mmol/L (22-30); CHLORIDE 102 mmol/L (98-107); GFR AFRICAN-AMERICAN > 60; GLUCOSE,RANDOM 471 mg/dL (75-110); POTASSIUM 4.6 MMOL/L (3.6-5.0); SODIUM 135 mmol/l (132-148); TOTAL PROTEIN 6.8 G/DL (6.3-8.2)
[2017-08-24] MEDS ORDERED: Insulin Regular 100 units/ml IV ONE (01:24)
--- NOTE | 2017-08-24 02:04 | CP.PCM.HP ---
History of Present Illness - History of Present Illness History of Present Illness: Full code PMD: Dr Clarke History taken from patient and previous records Next of kin: Bárbara Montoya(): [phone], [phone] 67 y/o M with PMHx of DMtype2, Asthma, HTN presented to ED c/o mid chest discomfort since last night. Chest discomfort is retrosternal and improves when he "burps", as per patient is not a pain, if he cant not burp he feels slightly SOB until he is able to. Denies heartburn, back pain, shoulder pain or UE pain. Denies palpitations, dizziness, vomiting, nausea, diarrhea, bloating. Patient states he is complaint with his home meds but did not take Lantus last night because he came to the hosp before the scheduled time. Denies polyuria, blurry vision, polydipsy, dysuria. Slightly thirsty. ED course: CBC, CMP, EKG, TnI x1, CXR ASA 325mg once NS IV 500 ml @ 100mls Regular insulin 10 units once PMHx: Asthma, DM type2, HTN SxHx: Hand fracture(Trauma) SHx: Former smoker since 20s. Stopped 1-2 y/a, ETOH social, denies drugs Present on Admission - Present on Admission Any Indicators Present on Admission: Yes History of Uncontrolled Diabetes: Yes Review of Systems - Review of Systems All systems: reviewed and no additional remarkable complaints except (Those mentioned on HPI) Past Patient History - Past Medical History & Family History Past Medical History?: Yes - Past Social History Smoking Status: Former Smoker Alcohol: Social Drugs: Denies - CARDIAC Hx Hypercholesterolemia: Yes Hx Hypertension: Yes - PULMONARY Hx Asthma: Yes - NEUROLOGICAL Hx Neurological Disorder: No - HEENT Hx Cataracts: Yes - RENAL Hx Chronic Kidney Disease: No - ENDOCRINE/METABOLIC Hx Endocrine Disorders: Yes (diabetes) Hx Diabetes Mellitus Type 2: Yes - HEMATOLOGICAL/ONCOLOGICAL Hx Human Immunodeficiency Virus (HIV): No - INTEGUMENTARY Hx Dermatological Problems: No - MUSCULOSKELETAL/RHEUMATOLOGICAL Hx Arthritis: No - GASTROINTESTINAL Hx Gastrointestinal Disorders: Yes Other/Comment: chronic constipation, rhona - GENITOURINARY/GYNECOLOGICAL Hx Genitourinary Disorders: No - PSYCHIATRIC Hx Anxiety: Yes Hx Depression: Yes - SURGICAL HISTORY Hx Surgeries: Yes Other/Comment: Hand/finger Sx due to trauma - ANESTHESIA Hx Anesthesia: Yes Hx Anesthesia Reactions: No Hx Malignant Hyperthermia: No Meds Allergies/Adverse Reactions: Allergies Allergy/AdvReac Type Severity Reaction Status Date / Time shrimp Allergy RASH Verified 11/28/15 00:34 Physical Exam - Constitutional Appears: Non-toxic, No Acute Distress - Eye Exam Eye Exam: EOMI, PERRL - ENT Exam ENT Exam: Mucous Membranes Moist - Respiratory Exam Respiratory Exam: Clear to Auscultation Bilateral, NORMAL BREATHING PATTERN. absent: Decreased Breath Sounds, Wheezes, Respiratory Distress - Cardiovascular Exam Cardiovascular Exam: REGULAR RHYTHM, +S1, +S2. absent: Gallop - GI/Abdominal Exam GI & Abdominal Exam: Normal Bowel Sounds, Soft. absent: Distended, Guarding, Rigid, Tenderness - Extremities Exam Extremities exam: Negative for: calf tenderness, joint swelling Additional comments: Onychomycosis - Back Exam Back exam: absent: CVA tenderness (L), CVA tenderness (R) - Neurological Exam Neurological exam: Alert, Normal Gait, Oriented x3 - Psychiatric Exam Psychiatric exam: Normal Affect, Normal Mood - Skin Skin Exam: Normal Color, Warm Results - Vital Signs Recent Vital Signs: Last Vital Signs Temp 98.4 F 08/23/17 23:37 Pulse 72 08/23/17 23:37 Resp 18 08/23/17 23:37 BP 163/98 H 08/23/17 23:37 Pulse Ox 98 08/24/17 01:28 - Labs Result Diagrams: 08/24/17 00:22 08/24/17 00:22 Labs: Laboratory Results - last 24 hr 08/24/17 08/24/17 00:22 00:22 WBC 5.7 RBC 4.41 Hgb 12.8 Hct 38.5 MCV 87.5 MCH 29.0 MCHC 33.2 RDW 12.9 Plt Count 174 MPV 8.9 Neut % (Auto) 53.9 Lymph % (Auto) 33.1 [place] % (Auto) 7.4 Eos % (Auto) 5.2 H Baso % (Auto) 0.4 Neut # 3.1 Lymph # 1.9 [place] # 0.4 Eos # 0.3 Baso # 0.0 Sodium 135 Potassium 4.6 Chloride 102 Carbon Dioxide 26 Anion Gap 12 BUN 19 Creatinine 1.1 Est GFR ( Amer) > 60 Est GFR (Non-Af Amer) > 60 Random Glucose 471 H* D Calcium 9.0 Total Bilirubin 0.6 AST 15 L ALT 40 Alkaline Phosphatase 96 Troponin I < 0.0120 Total Protein 6.8 Albumin 3.9 Globulin 2.9 Albumin/Globulin Ratio 1.4 Assessment & Plan - Assessment and Plan (Free Text) Assessment: 67 y/o M with PMHx of DM2, HTN and asthma admitted for chest pain to r/o ACS. Chest discomfort, acute -Unlikely ACS: EKG no acute ischemic changes(pending official report), TnI x1 normal. CXR no acute disease(pending official report) -No Chest pain -S/P ASA 325 mg at ED -F/U TnI x2 and EKG AM -Likely gas discomfort: Relieved with burping -Start Simethicone 80 mg TID -C/W PPIs daily Uncontrolled DM type 2, chronic -BS 471 on admission. Rest of CMP, CBC unremarkable -Missed Yesterday dose of Lantus -S/P 10 units of regular insulin ED -F/U Accuchecks, UA and CMP AM -SSRI -Lantus held(NF) -Start Levemir 15 units Q12h SQ. C/W Metformin 1000 mg AM. C/W Statins -Monitor HTN, chronic -Stable -C/W Enalapril 20 mg daily Asthma, mild intermittent -Controlled -C/W albuterol HFA PRN for SOB Prophylaxis -Lovenox 40 mg daily Full Code
[2017-08-24] MEDS ORDERED: Glucagon Recombinant 1 mg Inj IM PRN (02:13)
[2017-08-24] MEDS ORDERED: Dextrose 50% SYRINGE Inj (50 ml) IV PRN (02:13)
[2017-08-24] MEDS ORDERED: Albuterol HFA 90 mcg/actuation (8 g) INH PRN (02:21)
[2017-08-24] MEDS ORDERED: Simethicone 80 mg Chewtab PO PRN (02:30)
[2017-08-24] MEDS ORDERED: Insulin Detemir 100 Units/ml Inj SC SCH ×2 (02:30→09:00)
--- NOTE | 2017-08-24 07:31 | RAD ---
HISTORY: chest pain COMPARISON: No prior. FINDINGS: LUNGS: No active pulmonary disease. PLEURA: No significant pleural effusion identified, no pneumothorax apparent. CARDIOVASCULAR: Normal. OSSEOUS STRUCTURES: No significant abnormalities. VISUALIZED UPPER ABDOMEN: Normal. OTHER FINDINGS: None. IMPRESSION: No active disease.
[2017-08-24] MEDS ORDERED: Enoxaparin 40 mg Syringe SC SCH (09:00)
[2017-08-24] MEDS ORDERED: Patient's Own Med (Omeprazole [Omeprazole] 40 MG) PO SCH (09:00)
[2017-08-24] MEDS ORDERED: Pantoprazole 40 mg EC Tab PO SCH (09:00)
[2017-08-24 09:03] LABS: BASO % 0.3 % (0.0-2.0); EOS # 0.3 K/uL (0.0-0.7); EOS % 5.8 % (0.0-4.0); HEMATOCRIT 36.8 % (35.0-51.0); LYMPH # 2.1 K/uL (1.0-4.3); LYMPH % 39.2 % (20.0-40.0); MEAN CELL VOLUME 86.6 fl (80.0-94.0); MEAN CORPUSCULAR HEMOGLOBIN 29.8 pg (27.0-31.0); MEAN CORPUSCULAR HGB CONC 34.5 g/dL (33.0-37.0); MEAN PLATELET VOLUME 8.4 fl (7.2-11.7); MONO # 0.4 K/uL (0.0-0.8); NEUT # 2.6 K/uL (1.8-7.0); NEUT % 47.7 % (50.0-75.0); NRBC % 0.2 % (0.0-0.0); RED CELL DISTRIBUTION WIDTH 13.1 % (11.5-14.5); WHITE BLOOD COUNT 5.5 K/uL (4.8-10.8)
[2017-08-24] MEDS: Insulin Regular 100 units/ml SC SCH ×3 (09:06→17:49)
[2017-08-24 09:12] LABS: ALB/GLOB RATIO 1.3 (1.0-2.1); ALKALINE PHOSPHATASE 87 U/L (38-126); ALT/SGPT 37 U/L (21-72); AST/SGOT 14 U/L (17-59); BILIRUBIN,TOTAL 0.4 mg/dl (0.2-1.3); BLOOD UREA NITROGEN 18 mg/dl (9-20); CALCIUM 8.6 mg/dL (8.4-10.2); CARBON DIOXIDE 26 mmol/L (22-30); CHLORIDE 106 mmol/L (98-107); GFR AFRICAN-AMERICAN > 60; GLUCOSE,RANDOM 306 mg/dL (75-110); POTASSIUM 4.7 MMOL/L (3.6-5.0); SODIUM 140 mmol/l (132-148); TOTAL PROTEIN 6.3 G/DL (6.3-8.2)
--- NOTE | 2017-08-24 12:19 | CP.PCM.PN ---
Objective - Vital Signs/Intake and Output Vital Signs (last 24 hours): Temp Pulse Resp BP Pulse Ox 97.6 F 54 L 18 114/74 94 L 08/24/17 09:00 08/24/17 09:00 08/24/17 09:00 08/24/17 09:00 08/24/17 09:00 - Medications Medications: Current Medications Albuterol (Ventolin Hfa 90 Mcg/Actuation (8 G)) 1 puff INH BID PRN PRN Reason: Shortness of Breath Atorvastatin Calcium (Lipitor) 40 mg PO DAILY [facility] Last Admin: 08/24/17 09:07 Dose: 40 mg Dextrose (Dextrose 50% Inj) 0 ml IV STAT PRN; Protocol PRN Reason: Hypoglycemia Protocol Dextrose (Glutose 15) 0 gm PO ONCE PRN; Protocol PRN Reason: Hypoglycemia Protocol Enalapril Maleate (Vasotec) 20 mg PO DAILY [facility] Last Admin: 08/24/17 09:08 Dose: 20 mg Enoxaparin Sodium (Lovenox) 40 mg SC DAILY [facility] PRN Reason: Protocol Last Admin: 08/24/17 09:05 Dose: 40 mg Glucagon (Glucagen Diagnostic Kit) 0 mg IM STAT PRN; Protocol PRN Reason: Hypoglycemia Protocol Insulin Detemir (Levemir) 15 units SC Q12 [facility] Last Admin: 08/24/17 09:05 Dose: 15 units Insulin Human Regular (Humulin R) 0 units SC ACHS VIKI PRN Reason: Protocol Last Admin: 08/24/17 09:06 Dose: 4 units Metformin HCl (Glucophage) 1,000 mg PO DAILY [facility] Last Admin: 08/24/17 09:07 Dose: 1,000 mg Nitroglycerin (Nitrostat Sl Tab) 0.4 mg SL Q5M PRN PRN Reason: CP Pantoprazole Sodium (Protonix Ec Tab) 40 mg PO DAILY [facility] Last Admin: 08/24/17 09:07 Dose: 40 mg Simethicone (Mylicon Chew Tab) 80 mg PO TID PRN PRN Reason: Flatulence - Labs Labs: 08/24/17 08:30 08/24/17 08:30
--- NOTE | 2017-08-24 14:04 | CARD ---
APPROVED REPORT EKG Measurement Heart [id number] <Conclusion> Normal sinus rhythm Normal ECG
--- NOTE | 2017-08-24 14:12 | CARD ---
APPROVED REPORT EKG Measurement Heart [id number] <Conclusion> Normal sinus rhythm with sinus arrhythmia Normal ECG
[2017-08-24 15:42] LABS: RBC URINE 1 /hpf (0-3); URINE BILIRUBIN NEGATIVE (NEGATIVE); URINE BLOOD NEGATIVE (NEGATIVE); URINE COLOR YELLOW (YELLOW); URINE GLUCOSE (UA) >=500 mg/dL (Normal); URINE KETONE NEGATIVE (NEGATIVE); URINE LEUKOCYTE ESTERASE NEG Leu/uL (Negative); URINE PROTEIN NEGATIVE (NEGATIVE); URINE UROBILINOGEN 0.2-1.0 mg/dL (0.2-1.0); WBC URINE 1 /hpf (0-5)
[2017-08-24 15:55] VITALS: BP 138/70; PULSE 66; RESP 16; TEMP 98.2; O2SAT 98
--- NOTE | 2017-08-24 16:43 | CP.PCM.DIS ---
Provider - Provider Date of Admission: 08/24/17 01:18 Attending physician: Hema Lynch MD Time Spent in preparation of Discharge (in minutes): 30 Diagnosis - Discharge Diagnosis (1) Chest pain Status: Resolved Hospital Course - Lab Results Lab Results: Most Recent Lab Values WBC 5.5 K/uL (4.8-10.8) 08/24/17 08:30 RBC 4.24 Mil/uL (4.40-5.90) L 08/24/17 08:30 Hgb 12.7 g/dL (12.0-18.0) 08/24/17 08:30 Hct 36.8 % (35.0-51.0) 08/24/17 08:30 MCV 86.6 fl (80.0-94.0) 08/24/17 08:30 MCH 29.8 pg (27.0-31.0) 08/24/17 08:30 MCHC 34.5 g/dL (33.0-37.0) 08/24/17 08:30 RDW 13.1 % (11.5-14.5) 08/24/17 08:30 Plt Count 168 K/uL (130-400) 08/24/17 08:30 MPV 8.4 fl (7.2-11.7) 08/24/17 08:30 Neut % (Auto) 47.7 % (50.0-75.0) L 08/24/17 08:30 Lymph % (Auto) 39.2 % (20.0-40.0) 08/24/17 08:30 [place] % (Auto) 7.0 % (0.0-10.0) 08/24/17 08:30 Eos % (Auto) 5.8 % (0.0-4.0) H 08/24/17 08:30 Baso % (Auto) 0.3 % (0.0-2.0) 08/24/17 08:30 Neut # 2.6 K/uL (1.8-7.0) 08/24/17 08:30 Lymph # 2.1 K/uL (1.0-4.3) 08/24/17 08:30 [place] # 0.4 K/uL (0.0-0.8) 08/24/17 08:30 Eos # 0.3 K/uL (0.0-0.7) 08/24/17 08:30 Baso # 0.0 K/uL (0.0-0.2) 08/24/17 08:30 Sodium 140 mmol/l (132-148) 08/24/17 08:30 Potassium 4.7 MMOL/L (3.6-5.0) 08/24/17 08:30 Chloride 106 mmol/L (98-107) 08/24/17 08:30 Carbon Dioxide 26 mmol/L (22-30) 08/24/17 08:30 Anion Gap 13 (10-20) 08/24/17 08:30 BUN 18 mg/dl (9-20) 08/24/17 08:30 Creatinine 1.0 mg/dl (0.8-1.5) 08/24/17 08:30 Est GFR ( Amer) > 60 08/24/17 08:30 Est GFR (Non-Af Amer) > 60 08/24/17 08:30 POC Glucose (mg/dL) 323 mg/dL (65-110) H 08/24/17 11:37 Random Glucose 306 mg/dL (75-110) H 08/24/17 08:30 Calcium 8.6 mg/dL (8.4-10.2) 08/24/17 08:30 Total Bilirubin 0.4 mg/dl (0.2-1.3) 08/24/17 08:30 AST 14 U/L (17-59) L 08/24/17 08:30 ALT 37 U/L (21-72) 08/24/17 08:30 Alkaline Phosphatase 87 U/L (38-126) 08/24/17 08:30 Troponin I < 0.0120 ng/mL (0.00-0.120) 08/24/17 08:30 Total Protein 6.3 G/DL (6.3-8.2) 08/24/17 08:30 Albumin 3.6 g/dL (3.5-5.0) 08/24/17 08:30 Globulin 2.7 gm/dL (2.2-3.9) 08/24/17 08:30 Albumin/Globulin Ratio 1.3 (1.0-2.1) 08/24/17 08:30 Urine Color Yellow (YELLOW) 08/24/17 11:58 Urine Clarity Clear (Clear) 08/24/17 11:58 Urine pH 5.0 (5.0-8.0) 08/24/17 11:58 Ur Specific [place] 1.023 (1.003-1.030) 08/24/17 11:58 Urine Protein Negative mg/dL (NEGATIVE) 08/24/17 11:58 Urine Glucose (UA) >=500 mg/dL (Normal) 08/24/17 11:58 Urine Ketones Negative mg/dL (NEGATIVE) 08/24/17 11:58 Urine Blood Negative (NEGATIVE) 08/24/17 11:58 Urine Nitrate Negative (NEGATIVE) 08/24/17 11:58 Urine Bilirubin Negative (NEGATIVE) 08/24/17 11:58 Urine Urobilinogen 0.2-1.0 mg/dL (0.2-1.0) 08/24/17 11:58 Ur Leukocyte Esterase Neg Ash/uL (Negative) 08/24/17 11:58 Urine RBC (Auto) 1 /hpf (0-3) 08/24/17 11:58 Urine Microscopic WBC 1 /hpf (0-5) 08/24/17 11:58 - Hospital Course Hospital Course: 67 y.o. male with hx of HTN and Type II DM on Insulin admitted for chest pain rule out ACS. Pt. described the chest pain as gas like which improved with Myelcon. Pt. found to have Troponins x 3 negative, no acute changes on EKG, and resolution of chest pain during his stay at the hospital. Pt. alos noted to have Hyperglycemia while taking Metformin 1000mg daily and Lantus 30 units at bedtime. Pt. with no ketones in urine or anion gap or other electrolyte abnormalities. During the course of hospital stay pt. tolerating po without any nausea, vomiting, diarrhea, constipation, or abdominal pain. Pt. discharged to home with resolution of home meds. Pt. was advised to increase Metformin 1000mg once daily to twice daily. Discharge Medications Atorvastatin 40mg daily Enalapril 20mg daily Lantus 30 units qhs Metformin 1000mg BID Simethicone 80mg TID Omeprazole 40mg PRN Acetazolamide 250mg QHS Pt. to follow up with PMD Dr. Lynch within 1 week of discharge for Diabetes management E.R. precautions given. Discharge Exam - Head Exam Head Exam: ATRAUMATIC, NORMOCEPHALIC - Eye Exam Eye Exam: Normal appearance - ENT Exam ENT Exam: Mucous Membranes Moist - Neck Exam Neck exam: Full Rom - Cardiovascular Exam Cardiovascular Exam: REGULAR RHYTHM, +S1, +S2 - GI/Abdominal Exam GI & Abdominal Exam: Soft. absent: Tenderness - Extremities Exam Extremities exam: normal inspection - Neurological Exam Neurological exam: Alert, Oriented x3 - Psychiatric Exam Psychiatric exam: Normal Affect, Normal Mood Discharge Plan - Discharge Medications Prescriptions: MetFORMIN [glucoPHAGE] 1,000 mg PO BID #60 tab Simethicone [Gas Relief] 80 mg PO TID #14 tab.chew - Follow Up Plan Condition: FAIR Disposition: HOME/ ROUTINE Instructions: Chest Pain (DC) Additional Instructions: Activity as tolerated. Heart healthy low fat, low cholesterol with moderate consistent carbohydrate diet. Follow -up with Dr Watts in 2 weeks to call for appointment. Referrals: Hema Lynch MD [Staff Provider] -
[2017-08-24] MEDS ORDERED: Simethicone 80 mg Chewtab PO SCH (17:00)
== END 2017-08-24 19:00 | disposition home or self-care (01) ==
LOC: H.ER 23:12 → H.ERHOLD 08-24 01:18 → H.TEL 08-24 02:33
PROVIDERS: ADMIT Family Medicine; ATTEND Family Medicine
DX: R07.9 Chest pain, unspecified (principal); I10 Essential (primary) hypertension; E11.65 Type 2 diabetes mellitus with hyperglycemia; Z79.4 Long term (current) use of insulin; J45.20 Mild intermittent asthma, uncomplicated; E78.00 Pure hypercholesterolemia, unspecified; Z87.891 Personal history of nicotine dependence; Z91.013 Allergy to seafood
CPT/HCPCS: 71010; 80053; 81003; 82948; 84484; 85025; 93005; 99281; G0378; J1650; J7040

== ENCOUNTER 2018-10-13 09:41 | Day surgery (SDC) | payer MEDICARE ==
[2018-10-01 14:04] VITALS: BMI 29.0
[2018-10-13] MEDS ORDERED: Maxitrol Opht Susp ONE (11:50)
[2018-10-13] MEDS ORDERED: Tetracaine 0.5% Ophth 2 ML BOTTLE ONE (11:51)
[2018-10-13] MEDS ORDERED: EPINEPHrine 1 mg/ml (1:1000) Inj ONE (11:51)
[2018-10-13] MEDS ORDERED: Lidocaine 1% 20 MG/2 ML PF AMP ONE (11:52)
[2018-10-13] MEDS ORDERED: STERILE IRRIGATING SOLUTION 45 ML IR ONE (11:52)
[2018-10-13] MEDS ORDERED: Carbachol 0.01% IO ONE ×2 (11:52→15:33)
[2018-10-13] MEDS ORDERED: CA CL/K CL/NA CL 500 ML IR ONE (11:52)
[2018-10-13] MEDS ORDERED: Pilocarpine 1% Opht Soln ONE (11:52)
[2018-10-13] MEDS ORDERED: Chondroitin/Hyaluronate Opth Syringe KIT (0.55 ml-0.5 ml) IO ONE (11:52)
[2018-10-13] MEDS ORDERED: Povidone Iodine 5% Opht SOLUTION ONE (11:53)
[2018-10-13] MEDS ORDERED: Lactated Ringer's 1,000 ML IV ONE (12:03)
[2018-10-13] MEDS ORDERED: Mepivacaine HCl 2% (20ml) Inj ONE (12:18)
[2018-10-13] MEDS ORDERED: Hyaluronidase 200 UNITS/ML VIAL ONE (12:19)
[2018-10-13] MEDS ORDERED: Bupivacaine HCl 0.5% PF (30 ml) Inj ONE (12:19)
[2018-10-13] MEDS ORDERED: MITOMYCIN TOP ONE (14:45)
[2018-10-13] MEDS ORDERED: CHEMO TOP ONE (14:45)
[2018-10-13] MEDS ORDERED: Midazolam 2 MG/2 ML VIAL ONE (14:54)
[2018-10-13] MEDS ORDERED: Tetracaine 0.5% Ophth 2 ML BOTTLE OD ONE (14:55)
[2018-10-13] MEDS ORDERED: Hyaluronidase 200 UNITS/ML VIAL SC ONE (15:07)
[2018-10-13] MEDS ORDERED: Mepivacaine HCl 2% (20ml) Inj IJ ONE (15:07)
[2018-10-13 16:22] VITALS: RESP 18
[2018-10-13 17:03] VITALS: BP 160/76; PULSE 65; TEMP 97.6; O2SAT 97
--- NOTE | 2018-10-14 08:08 | OP ---
PROCEDURE DATE: 10/13/2018 SURGEON: SUSAN SNELL MD ANESTHESIOLOGIST: JARED OBRIEN MD ANESTHESIA: LOCAL / IV SEDATION PREOPERATIVE DIAGNOSIS: UNCONTROLLED GLAUCOMA OF RIGHT EYE POSTOPERATIVE DIAGNOSIS: SAME OPERATION: IMPLANTATION OF EXPRESS SHUNT OF RIGHT EYE PREPARATION AND PROCEDURE: : The patient was draped in the usual customary manner for sterile opthalmic surgery. Under micro surgical control, the wide lid speculum was placed within the lids of the right eye. Under surgical microscope, a limbal based conjuncitval peritomy was made down to the bare sclera. Hemostasis was obtained with an eraser cautery. A triangular lamellar flap of the sclera with the base at the limbus west fashion. A pre-shunt was implanted and properly situated and visualized in the anterior chamber. An 8-0 Vicryl suture was utilized in a continuous fashion for closure of tenons fascia and the bulbar conjunctiva. An anterior vitrectomy with repositioning of the sulcus iol, and lysis of vitreo-corneal adhesions was carried out. This terminated the procedure. Maxitrol opthalmic suspension was applied to the eye. POSTOPERATIVE CONDITION: The patient was brought to the Post anesthesia Recovery area with stable vital signs. SUSAN SNELL MD [facility]
== END 2018-10-13 17:20 | disposition home or self-care (01) ==
LOC: H.OPSURG 09:41
PROVIDERS: ATTEND Ophthalmology
DX: H40.1110 Primary open-angle glaucoma, right eye, stage unspecified (principal); J45.909 Unspecified asthma, uncomplicated; E78.5 Hyperlipidemia, unspecified; I10 Essential (primary) hypertension; K21.9 Gastro-esophageal reflux disease without esophagitis; E11.40 Type 2 diabetes mellitus with diabetic neuropathy, unspecified
CPT/HCPCS: 66183; 82948; J0171; J2250; J3010; J3470; J7120; J9280

== ENCOUNTER 2019-01-12 10:02 | Day surgery (SDC) | payer MEDICARE, OTHER ==
[2019-01-12] MEDS ORDERED: Tetracaine 0.5% Ophth 2 ML BOTTLE ONE (10:31)
[2019-01-12] MEDS ORDERED: Pilocarpine 1% Opht Soln ONE (10:31)
[2019-01-12] MEDS ORDERED: Povidone Iodine 5% Opht SOLUTION ONE (10:31)
[2019-01-12] MEDS ORDERED: Bupivacaine HCl 0.5% PF (30 ml) Inj ONE (10:31)
[2019-01-12] MEDS ORDERED: Hyaluronidase 200 UNITS/ML VIAL ONE (10:32)
[2019-01-12] MEDS ORDERED: STERILE IRRIGATING SOLUTION 30 ML IR ONE (10:32)
[2019-01-12] MEDS ORDERED: Chondroitin/Hyaluronate Opth Syringe KIT (0.55 ml-0.5 ml) IO ONE ×3 (10:32→15:04)
[2019-01-12] MEDS ORDERED: TETRACAINE HCL IJ ONE (10:34)
[2019-01-12 10:49] VITALS: BMI 28.3
[2019-01-12] MEDS ORDERED: Lactated Ringer's 1,000 ML IV ONE (11:07)
[2019-01-12] MEDS ORDERED: MITOMYCIN TOP ONE (11:45)
[2019-01-12] MEDS ORDERED: STERILE WATER FOR INJ TOP ONE (11:45)
[2019-01-12] MEDS ORDERED: [UNRECOGNIZED DRUG - OTHER] IR ONE (14:25)
[2019-01-12] MEDS ORDERED: K CL IR ONE (14:25)
[2019-01-12] MEDS ORDERED: Carbachol 0.01% IO ONE (14:25)
[2019-01-12] MEDS ORDERED: Midazolam 2 MG/2 ML VIAL ONE (14:45)
[2019-01-12] MEDS ORDERED: Hyaluronidase 200 UNITS/ML VIAL SC ONE (15:04)
[2019-01-12 15:57] VITALS: RESP 18
[2019-01-12 17:35] VITALS: BP 175/88; PULSE 78; TEMP 98; O2SAT 97
--- NOTE | 2019-01-13 08:17 | OP ---
PROCEDURE DATE: 01/12/2019 SURGEON: SUSAN SNELL MD ANESTHESIOLOGIST: IRENE TOBAR MD ANESTHESIA: LOCAL / IV SEDATION PREOPERATIVE DIAGNOSIS: UNCONTROLLED GLAUCOMA LEFT EYE POSTOPERATIVE DIAGNOSIS: SAME OPERATION: TRABECULECTOMY OF THE LEFT EYE. PREPARATION AND PROCEDURE: The patient was brought to the Operative Suite and after facial akinesia and retrobulbar block were induced, the patient was prepped and draped in the usual manner for sterile ophthalmic surgery. A wire- lid speculum was placed through the belly of the superior rectus muscle for fixation of the globe. At 6 mm posterior to the 12 o'clock position of the cornea, a curvilinear peritomy was performed through bulbar conjunctiva and Tenon's capsule for 8 degrees. The conjunctiva, Tenon's capsule and subconjunctival tissue were reflected anteriorly over the cornea with blunt and sharp dissection using a [place] knife. Hemostasis was obtained using bipolar cautery. When this was obtained satisfactorily, a 5 mm lamellar scleral triangle was fashioned at the base of the triangle at the surgical sulcus. A #75 medium [place] blade was employed to delineate the size of the triangular flap. This was done to one half depth of the sclera. The apex of the flap was elevated using a 0.12 micro-forceps and the lamellar flap was initiated with the #75 medium [place] blade. At this point, the #66 [place] blade was employed to continue and terminate the lamellar scleral flap which was done satisfactorily through the surgical sulcus. With the flap being held vertically and a fresh #75 medium [place] blade employed, a horizontal incision from one end to the other at the base of the flap was fashioned through the trabecular meshwork into the anterior chamber. The peripheral iris was noted to prolapse satisfactorily into the wound and a large peripheral iridectomy was fashioned at this time. The iris was noted to retract back into the anterior chamber satisfactorily. A section of the trabecular meshwork and scleral spur measuring 5 mm X 5 mm was excised using a Vannas scissor and 0.12 forceps. This was submitted to Pathology for examination. A #8-0 Vicryl suture was placed at the apex of the flap and this was secured. The anterior chamber was reformed using balanced salt solution and Miochol was instilled into the anterior chamber for pupillary myosis. The pupil was found to constrict and to be round. The conjunctival peritomy and Tenon's capsule were closed in continuous fashion using a #8-0 chromic suture. This was done satisfactorily and no wound leaks were noted. Twenty mg of A-metha was injected through the lower lid into the subtenon. The #4-0 superior rectus suture was removed. Maxitrol drops were applied into the eye. A patch and shield were applied. POSTOPERATIVE CONDITION: The patient was brought to the Post anesthesia Recovery area with stable vital signs. DSUSAN HERNANDEZ MD
== END 2019-01-12 17:35 | disposition home or self-care (01) ==
LOC: H.OPSURG 10:02
PROVIDERS: ATTEND Ophthalmology
DX: H40.2223 Chronic angle-closure glaucoma, left eye, severe stage (principal)
CPT/HCPCS: 66170; 82948; J2250; J3010; J3470; J7120; J9280